=== PATIENT | male | born 1965 | race Caucasian/White ===

== ENCOUNTER 2018-10-15 07:22 | Day surgery (SDC) | payer OTHER ==
--- OUTSIDE RECORDS SUMMARY | 2018-10-15 07:25 | XMS REPORT ---
:1965 Author Organization [employer] Care Team Providers Name Role Phone Jr Rodriguez Provider Role Unavailable Allergies, Adverse Reactions, Alerts Substance Reaction Event Type N.K.D.A. Info Not Available Non Drug Allergy Problems Problem Type Condition Code Onset Dates Condition Status Assessment Encounter for screening for other Z11.59 Active viral diseases Assessment Encounter for preventative adult Z00.00 Active health care examination Assessment Asthma, unspecified asthma J45.909 Active severity, unspecified whether complicated, unspecified whether persistent Assessment Screening for colon cancer Z12.11 Active Assessment Need for influenza vaccination Z23 Active Problem Lumbar disc herniation with M51.16 Active radiculopathy Problem Pain of left hip joint M25.552 Active Problem Degenerative disc disease, lumbar M51.36 Active Problem Back pain with left-sided M54.10 Active radiculopathy Problem Bilateral tinnitus H93.13 Active Problem Asthma, unspecified asthma J45.909 Active severity, unspecified whether complicated, unspecified whether persistent Medications Medication Code System Code Instructions Start Date End Date Status Dosage Duexis [facility] 92224537894 800-26.6 MG Active 1 tablet Orally Three times a day PRN Pain Results No Known Results Immunizations Vaccine Administration Date Afluria Jul 14, 2018 Summary Purpose [employer] Submission
--- OUTSIDE RECORDS SUMMARY | 2018-10-15 07:25 | XMS REPORT ---
:1965 Author Organization [employer] Care Team Providers Name Role Phone Michael Jr Provider Role Unavailable Allergies No Known Allergies Problems Problem Type Condition Code Onset Dates Condition Status Assessment Elevated LFTs R94.5 Active Assessment Mixed hyperlipidemia E78.2 Active Assessment Lumbar disc herniation with M51.16 Active radiculopathy Problem Lumbar disc herniation with M51.16 Active radiculopathy Problem Degenerative disc disease, lumbar M51.36 Active Problem Mixed hyperlipidemia E78.2 Active Problem Asthma, unspecified asthma J45.909 Active severity, unspecified whether complicated, unspecified whether persistent Problem Back pain with left-sided M54.10 Active radiculopathy Problem Pain of left hip joint M25.552 Active Problem Bilateral tinnitus H93.13 Active Medications Medication Code System Code Instructions Start Date End Date Status Dosage Duexis [facility] 07297724162 800-26.6 MG Active 1 tablet Orally Three times a day PRN Pain Results No Known Results Summary Purpose [employer]Works Submission
--- OUTSIDE RECORDS SUMMARY | 2018-10-15 07:25 | XMS REPORT ---
:1965 Author Organization [employer] Care Team Providers Name Role Phone Jr Rodriguez Provider Role Unavailable Allergies No Known Allergies Problems Problem Type Condition Code Onset Dates Condition Status Problem Bilateral tinnitus H93.13 Active Problem Asthma, unspecified asthma J45.909 Active severity, unspecified whether complicated, unspecified whether persistent Problem Pain of left hip joint M25.552 Active Problem Back pain with left-sided M54.10 Active radiculopathy Medications No Known Medications Results No Known Results Summary Purpose [employer] Submission
--- OUTSIDE RECORDS SUMMARY | 2018-10-15 07:25 | XMS REPORT ---
:1965 Author Organization [employer] Care Team Providers Name Role Phone Jr Rodriguez Provider Role Unavailable Allergies No Known Allergies Problems Problem Type Condition Code Onset Dates Condition Status Assessment Degenerative disc disease, lumbar M51.36 Active Assessment Lumbar disc herniation with M51.16 Active radiculopathy Assessment Pain of left hip joint M25.552 Active Assessment Bilateral tinnitus H93.13 Active Problem Lumbar disc herniation with M51.16 Active radiculopathy Problem Pain of left hip joint M25.552 Active Problem Degenerative disc disease, lumbar M51.36 Active Problem Back pain with left-sided M54.10 Active radiculopathy Problem Bilateral tinnitus H93.13 Active Problem Asthma, unspecified asthma J45.909 Active severity, unspecified whether complicated, unspecified whether persistent Medications Medication Code System Code Instructions Start Date End Date Status Dosage Duexis [facility] [place] 2] 80304657509 800-26.6 MG Active 1 tablet Orally Three times a day PRN Pain Results No Known Results Summary Purpose [employer]Works Submission
--- OUTSIDE RECORDS SUMMARY | 2018-10-15 07:25 | XMS REPORT ---
:1965 Author Organization [employer] Care Team Providers Name Role Phone Julienne Rodriguezh Provider Role Unavailable Allergies, Adverse Reactions, Alerts Substance Reaction Event Type N.K.D.A. Info Not Available Non Drug Allergy Problems Problem Type Condition Code Onset Dates Condition Status Assessment Bilateral tinnitus H93.13 Active Problem Bilateral tinnitus H93.13 Active Problem Asthma, unspecified asthma J45.909 Active severity, unspecified whether complicated, unspecified whether persistent Problem Pain of left hip joint M25.552 Active Assessment Back pain with left-sided M54.10 Active radiculopathy Assessment Pain of left hip joint M25.552 Active Problem Back pain with left-sided M54.10 Active radiculopathy Medications Medication Code System Code Instructions Start Date End Date Status Dosage Duexis [facility] 98806817018 800-26.6 MG May 05, Jun 04, Active 1 tablet Orally Three 2018 2018 times a day PRN Pain Results No Known Results Summary Purpose [employer] Submission
[2018-10-15] MEDS ORDERED: Ringers Lactate 1,000 ML IV ONE (08:06)
[2018-10-15] MEDS ORDERED: PROPOFOL 200 MG/20 ML VIAL IV ONE (08:32)
[2018-10-15] MEDS ORDERED: MIDAZOLAM HCL 2 MG/2 ML INJ ONE (08:32)
--- NOTE | 2018-10-15 09:12 | ENDO RPT ---
[address], [address] COLONOSCOPY PROCEDURE REPORT EXAM DATE: 10/15/2018 PATIENT NAME: Javeir Polanco MR #: [id number] BIRTHDATE: 1965 ATTENDING: Landen Woody DR STATUS: outpatient SPLITTER MACHINE: Zandra Ugarte, Ana Rosa Bowman RN, Rajat Ugarte, and Flory Gil RN INDICATIONS: The patient is a 53 yr old Male here for a colonoscopy due to colon cancer screening PROCEDURE PERFORMED: Colonoscopy with biopsy - cold polypectomy MEDICATIONS: Per Anesthesia. ESTIMATED BLOOD LOSS: None CONSENT: The patient understands the risks and benefits of the procedure and understands that these risks include, but are not limited to: sedation, allergic reaction, infection, perforation and/or bleeding. Alternative means of evaluation and treatment include, among others: physical exam, x-rays, and/or surgical intervention. The patient elects to proceed with this endoscopic procedure. DESCRIPTION OF PROCEDURE: During intra-op preparation period all mechanical medical equipment was checked for proper function. Hand hygiene and appropriate measures for infection prevention was taken. Procedure, possible complications, alternatives including, but not limited to possibility of bleeding, perforation, tear, infection, sepsis, need for surgery, need for blood transfusion, were explained to the patient. After the risks, benefits and alternatives of the procedure were thoroughly explained, Informed consent was verified, confirmed and timeout was successfully executed by the treatment team. The patient was placed in the left lateral position. A digital rectal exam was performed and revealed internal hemorrhoids. After appropriate level of anesthesia, the scope was passed. The [id number] ([id number]) endoscope was introduced through the anus and advanced to the cecum, which was identified by both the appendix and ileocecal valve. The quality of the prep was fair. The instrument was then slowly withdrawn as the colon was fully examined. Scope withdrawal time was 10 minutes. COLON FINDINGS: Two small smooth semi-pedunculated polyps with mucous caps were found at the cecum and in the sigmoid colon. A polypectomy was performed with cold forceps. The resection was complete, the polyp tissue was completely retrieved and sent to histology. Small internal hemorrhoids were found. Retroflexed views revealed no abnormalities. The scope was then completely withdrawn from the patient and the procedure terminated. ADVERSE EVENTS: There were no complications. IMPRESSIONS: 1. Two small semi-pedunculated polyps were found at the cecum and in the sigmoid colon; polypectomy was performed in a piecemeal fashion with cold forceps 2. Small internal hemorrhoids RECOMMENDATIONS: 1. avoid NSAIDS for 2 weeks 2. await biopsy results 3. fiber rich diet 4. follow-up: office 2 week(s) RECALL: Return in 3 year(s) for Colonoscopy, pending biopsy results. Pending Biopsy Landen Woody DR eSigned: Landen Woody DR 10/15/2018 9:03 AM cc: CPT CODES: ICD9 CODES: PATIENT NAME: Javier Polanco MR#: [id number]
== END 2018-10-15 09:26 | disposition home or self-care (01) ==
LOC: OR 07:22
PROVIDERS: ATTEND Surgery
PROC: 0DBN8ZX Excision of Sigmoid Colon, Via Natural or Artificial Opening Endoscopic, Diagnostic (ICD-10-PCS; 2018-10-15)
PROC: 0DBH8ZX Excision of Cecum, Via Natural or Artificial Opening Endoscopic, Diagnostic (ICD-10-PCS; principal; 2018-10-15 08:30)
DX: Z12.11 Encounter for screening for malignant neoplasm of colon (principal); D12.0 Benign neoplasm of cecum; D12.5 Benign neoplasm of sigmoid colon; K64.8 Other hemorrhoids; Z80.0 Family history of malignant neoplasm of digestive organs; Z82.3 Family history of stroke; Z82.49 Family history of ischemic heart disease and other diseases of the circulatory system
CPT/HCPCS: 88305; J2250; J2704